=== PATIENT | female | born 1930 | race Caucasian/White ===

== ENCOUNTER → 2016-05-05 | Outpatient (REF) | payer MEDICARE ==
[~2016-05-05] MED LIST: ALEN70TA39 PO; AMLO5TAB2 PO; ASPI81TA21 PO; DRAM25TA3 PO; FLEEENE4 PR; FOSA70TA PO; GLIP5TAB8 PO; GLUC5TAB3 PO; GLUCTAB PO; LISI20TA PO; MELO15TA4 PO; METF1000 PO; METF500T4 PO; NORV5TAB PO; SENO8.6T10 PO; SIMV20TA2 PO; TRAN1.5D2 TOP; TYLE650T30 PO; VITA10006 PO; VITA100066 PO; VITA2000 PO; ZEST1TAB2 PO; ZEST1TAB7 PO
[2016-05-05 12:15] LABS: ALBUMIN 3.4 GM/DL (3.2-5.2); ALBUMIN/GLOBULIN RATIO 1.36 (1.00-1.93); BILIRUBIN,TOTAL 0.3 MG/DL (0.2-1.0); CALCIUM LEVEL 8.9 MG/DL (8.8-10.2); CREATININE FOR GFR 1.1 MG/DL (0.55-1.02); GLOMERULAR FILTRATION RATE 50.1 (>32); POTASSIUM SERUM 4.2 MEQ/L (3.5-5.1); TOTAL PROTEIN 5.9 GM/DL (6.4-8.2)
== END | disposition home or self-care (01) ==
LOC: M SFHCPLAZ 08:54
PROVIDERS: ATTEND Internal Medicine
DX: E11.9 Type 2 diabetes mellitus without complications (principal); I10 Essential (primary) hypertension

== ENCOUNTER 2016-06-20 02:44 | Inpatient (IN) | payer MEDICARE ==
[~2016-06-20] VITALS: Ht 154.9 cm; Wt 73.2 kg
[2016-06-20] VITALS (7 sets, daily range): BP systolic 159–191; BP diastolic 70–91
[2016-06-20] MEDS ORDERED: CEFD1CAP8 PO (03:42)
[2016-06-20] MEDS ORDERED: NS 1,000 ML IV SCH (03:45)
[2016-06-20] MEDS: fentaNYL 100 MCG/2 ML INJECTION (J3010) IV PRN ×2 (03:53→04:25)
[2016-06-20 04:07] LABS: BASO % 0.8 % (0.0-1.0); EOS % 0.9 % (0.0-3.0); LARGE UNSTAINED CELL # 0.1 K/mm3 (0.0-0.4); LARGE UNSTAINED CELL % 1.5 % (0.0-4.0); LYMPH # 1.5 K/mm3 (1.5-4.5); LYMPH % 22.1 % (24.0-44.0); MEAN CORPUSCULAR HEMOGLOBIN 30.6 pg (27.0-33.0); MEAN CORPUSCULAR HGB CONC 31.8 g/dl (32.0-36.5); MONO # 0.4 K/mm3 (0.0-0.8); MONO % 6.7 % (0.0-5.0); NEUTROPHILS # 4.2 K/mm3 (1.8-7.7); NEUTROPHILS % 68.1 % (36.0-66.0); PLATELET COUNT, AUTOMATED 298 k/mm3 (150-450); RED CELL DISTRIBUTION WIDTH 13.5 % (11.5-14.5); WHITE BLOOD COUNT 6.2 K/mm3 (4.0-10.0)
[2016-06-20] MEDS: ONDANSETRON 4MG/2ML VIAL (J2405) IV PRN ×2 (04:30→12:13)
[2016-06-20] MEDS ORDERED: FLUORESCEIN OPHTH 1 MG STRIP OD ONE (04:30)
[2016-06-20 04:31] LABS: ALBUMIN 3.4 GM/DL (3.2-5.2); ALBUMIN/GLOBULIN RATIO 1.03 (1.00-1.93); ALKALINE PHOSPHATASE 92 U/L (45-117); ALT/SGPT 15 U/L (12-78); ANION GAP 8 MEQ/L (8-16); AST/SGOT 11 U/L (15-37); BILIRUBIN,DIRECT < 0.1 MG/DL (0.0-0.2); BILIRUBIN,TOTAL 0.4 MG/DL (0.2-1.0); BLOOD UREA NITROGEN 14 MG/DL (7-18); CALCIUM LEVEL 8.7 MG/DL (8.8-10.2); CARBON DIOXIDE LEVEL 27 MEQ/L (21-32); CHLORIDE LEVEL 107 MEQ/L (98-107); GLOMERULAR FILTRATION RATE 55.8 (>32); GLUCOSE, FASTING 141 MG/DL (83-110); POTASSIUM SERUM 4.1 MEQ/L (3.5-5.1); SODIUM LEVEL 142 MEQ/L (136-145); TOTAL PROTEIN 6.7 GM/DL (6.4-8.2)
[2016-06-20] MEDS: HYDROmorphone HCL 1 MG/ML SYRINGE (J1170) IV PRN ×2 (04:33→07:29)
[2016-06-20] MEDS ORDERED: ONDANSETRON 4MG/2ML VIAL (J2405) As Ordered ONE (04:37)
[2016-06-20] MEDS ORDERED: ACYCLOVIR 500 MG in D5W MINI-BAG PLUS 100 ML IV ONE (05:00)
[2016-06-20] MEDS ORDERED: ISOVUE-370 76% 100ML VIAL (Q9967) As Ordered ONE (05:01)
[2016-06-20 05:04] LABS: ERYTHROCYTE SEDIMENTATION RATE 12 mm/hr (0-42)
[2016-06-20] MEDS: TRIFLURIDINE 1% OPHTH SOLN 7.5 ML OD SCH ×5 (05:46→20:57)
[2016-06-20 06:27] LABS: METHADONE URINE NEGATIVE (NEGATIVE)
[2016-06-20] MEDS ORDERED: DEXTROSE 50% 50 ML SYRINGE IV PRN (06:30)
[2016-06-20] MEDS ORDERED: GLUCAGON FOR INJ 1 MG VIAL (J1610) SC PRN (06:30)
[2016-06-20] MEDS ORDERED: GLUCOSE 4 GM CHEW TABLET PO PRN (06:30)
[2016-06-20] MEDS ORDERED: ERYT5OPO OD (06:46)
--- NOTE | 2016-06-20 07:12 | HPEPDOC ---
Medical History and Physical Date of Admission 06/20/16 History and Physical PRIMARY CARE PROVIDER: ATTENDING: Dr. Chávez. CHIEF COMPLAINT: Eye pain HISTORY OF PRESENT ILLNESS: This 86-year-old female past ocular history of diabetes, hypertension, hyperlipidemia, osteoporosis, BPPV presents complaining of a headedness and right eye pain. Much of the history was provided by the ED physician. Patient appears to likely have baseline dementia, and could not provide most of the history. Apparently the patient had been seen by her trestleman and prescribed Cefdinir for the erythema surrounding her right eye. The patient states that's her eye pain had progressively worsened. EMS had noted that half of her antibiotics had been missing in the patient's initially noted that she had taken half of them over 1 day (5 days of tablets). ED physician and also spoken to poison control who recommended observation of renal function. The patient also had a stained eye exam by the ED physician who did not note any vesicles or foreign body. Dr. Hilliard was contacted by the ED with recommendations for antibiotic viral drops which have been ordered. Patient states her pain is currently well controlled. Denies any blurred vision or vision changes. PAST MEDICAL HISTORY: As per HPI PAST SURGICAL HISTORY: HYST, hand tendon surg, polypectomy, b/l cataracts SOCIAL HISTORY:Denies tobacco, alcohol, illicit drug use. Lives alone. FAMILY HISTORY:Non contrib. ALLERGIES: Please see below. REVIEW OF SYSTEMS: HEENT: Denies sore throat/headache CARDIOVASCULAR: Denies chest pain/palpitations RESPIRATORY: No shortness of breath/cough GASTROINTESTINAL: denies nausea/vomiting GENITOURINARY: Denies dysuria/urinary urgency. MUSCULOSKELETAL: Denies myalgias/arthralgias NEUROLOGICAL: Denies any focal weakness Rest of ROS negative. HOME MEDICATIONS: Please see below. PHYSICAL EXAMINATION: Vitals: (see below) General: No acute distress, laying comfortably in bed. HEENT: Moist mucous membranes. EOMI. Pupils 1-2mm equal and reactive to light. Right eye with injected conjunctiva and swollen. No pain with eye movement. Visual butler intact. Pre-septal cellulitis/erythema. Minimal crustal adjacent to the nasal bridge. Yellow drainage like from the fluorescein eye stain. Neck: No JVD or lymphadenopathy Cardiac: RRR, No murmurs Pulm: Coarse crackles b/l bases. No wheezing, rhonchi Abd: NT/ND + BS Ext: No edema or cyanosis LABORATORY DATA: See below. IMAGING: CT Maxillofacial pending. MICROBIOLOGY: Please see below. ASSESSMENT/PLAN: 1. Herpes zoster with surrounding ophthalmologic involvement - ophthalmology has been contacted by the ED with recommendations for anti-viral drops which have been ordered. CT maxillofacial had been reported to have preseptal cellulitis. Patient was initially prescribed Cefdnir, which the patient taken 5 days worth in 1 day. Poison control had been contacted in the ED with recommendations for monitoring of renal function. In the meantime we'll treat patient with clindamycin for preseptal cellulitis as well as continuing antivirals. 2. Diabetes mellitus- sliding scale insulin 3. Hypertension- continue home meds 4. Osteoporosis 5. Dementia PFS consult has been placed as the patient may need placement given her dementia and her living situation. DVT prophylaxis- OOB Patient be followed by Dr. Chávez starting 06/20/16 at 7 AM. Vital Signs Vital Signs Date Time Temp Pulse Resp B/P Pulse Ox O2 Delivery O2 Flow Rate FiO2 06/20/16 02:51 98.2 72 18 127/80 95 Room Air Laboratory Data Labs 24H Laboratory Tests 2 06/20/16 03:49: Acetaminophen Level < 2.0L, Aspartate Amino Transf (AST/SGOT) 11L, Alanine Aminotransferase (ALT/SGPT) 15, Alkaline Phosphatase 92, Total Bilirubin 0.4, Direct Bilirubin < 0.1, Albumin 3.4, Albumin/Globulin Ratio 1.03, Anion Gap 8, White Blood Count 6.2, Red Blood Count 4.21, Hemoglobin 12.9, Hematocrit 40.4, Mean Corpuscular Volume 96.0, Mean Corpuscular Hemoglobin 30.6, Mean Corpuscular Hemoglobin Concent 31.8L, Red Cell Distribution Width 13.5, Platelet Count 298, Neutrophils (%) (Auto) 68.1H, Lymphocytes (%) (Auto) 22.1L, Monocytes (%) (Auto) 6.7H, Eosinophils (%) (Auto) 0.9, Basophils (%) (Auto) 0.8 , Neutrophils # (Auto) 4.2, Lymphocytes # (Auto) 1.5, Monocytes # (Auto) 0.4, Eosinophils # (Auto) 0.0, Basophils # (Auto) 0.0, C-Reactive Protein, Quantitative < 0.30, Calcium Level 8.7L, Erythrocyte Sedimentation Rate 12, Ethyl Alcohol Level < 0.003, Glomerular Filtration Rate 55.8, Large Unclassified Cells # 0.1, Large Unclassified Cells % 1.5, Salicylates Level < 1.7L, Thyroid Stimulating Hormone (TSH) 1.520, Total Creatine Kinase 74, Total Protein 6.7 06/20/16 05:48: Urine Amphetamines Screen NEGATIVE, Urine Benzodiazepines Screen NEGATIVE, Urine Opiates Screen NEGATIVE, Urine Barbiturates Screen NEGATIVE, Urine Cannabinoids Screen NEGATIVE, Urine Cocaine Metabolite Screen NEGATIVE, Urine Methadone Screen NEGATIVE, Urine Phencyclidine Screen NEGATIVE CBC/BMP Laboratory Tests 06/20/16 03:49 Red Blood Count 4.21, Mean Corpuscular Volume 96.0, Mean Corpuscular Hemoglobin 30.6, Mean Corpuscular Hemoglobin Concent 31.8 L, Red Cell Distribution Width 13.5, Neutrophils (%) (Auto) 68.1 H, Lymphocytes (%) (Auto) 22.1 L, Monocytes (% ) (Auto) 6.7 H, Eosinophils (%) (Auto) 0.9, Basophils (%) (Auto) 0.8, Neutrophils # (Auto) 4.2, Lymphocytes # (Auto) 1.5, Monocytes # (Auto) 0.4, Eosinophils # (Auto) 0.0, Basophils # (Auto) 0.0 Microbiology Microbiology 06/20/16 Blood Culture, Received Pending 06/20/16 Blood Culture, Received Pending Home Medications Scheduled (Lisinopril/Hydrochlorothi 20-12.5 mg) 1 Tab Tab 1 TAB PO DAILY Alendronate Sodium (Fosamax) 70 Mg Tab 70 MG PO 1XWK Amlodipine Besylate (Amlodipine Besylate) 5 Mg Tab 5 MG PO DAILY Ascorbic Acid (Vitamin C) 1,000 Mg Tab 2,000 MG PO DAILY Aspirin (Aspir-Low) 81 Mg Tab 81 MG PO DAILY Cefdinir (Cefdinir) 300 Mg Cap 300 MG PO BID FOR 10 DAYS; 06/18/2016 Cholecalciferol (Vitamin D) 1,000 Unit Tab 1,000 UNIT PO DAILY Erythromycin (Erythromycin) 1 Dose/1 Gm Oint 0 OD TID FOR 5 DAYS; STARTED 06/18/2016 Glipizide (Glipizide) 5 Mg Tab 5 MG PO BID Metformin Hydrochloride (Metformin HCl ER) 500 Mg Tab 500 MG PO DAILY Scopolamine (Transderm-Scop) 1.5 Mg Dis 1.5 MG TOP Q72H Simvastatin (Simvastatin) 20 Mg Tab 20 MG PO QHS Allergies Coded Allergies: Meclizine (Verified Allergy, Unknown, 11/16/14) Morphine (Unverified Allergy, Unknown, SHAKES, 01/02/14) Procaine (Verified Allergy, Unknown, 11/16/14) Azithromycin (Verified Adverse Reaction, Intermediate, PALPITATION,WEAK, SHAKING, 07/04/12) Codeine (Unverified Adverse Reaction, Intermediate, NAUSEA,HALLUCINATIONS , 07/04/12) Penicillins (Verified Adverse Reaction, Mild, NAUSEA,VOMITING, 07/04/12) Penicillins Cross Reactors (Verified Adverse Reaction, Mild, NAUSEA, VOMITING, 07/04/12) JULIETA BETTS MD Jun 20, 2016 07:12 JULIETA BETTS MD Jun 20, 2016 07:12
[2016-06-20] MEDS: HumaLOG INSULIN (NovoLOG) PER UNIT SC SCH ×4 (07:42→20:43)
[2016-06-20] MEDS: CLINDAMYCIN 300 MG in APPROPRIATE DILUENT 1 EA IV SCH ×2 (07:59→17:21)
--- NOTE | 2016-06-20 08:04 | REP ---
Clinical: Drug overdose . Comparison: 02/16/2016 . Findings: The mediastinum and cardiac silhouette are stable and within normal limits for portable technique. The lung butler are clear without acute consolidation, effusion, or pneumothorax. Skeletal structures are intact. Impression: Normal portable chest x-ray Signed by Eliud Blank MD 06/20/2016 07:56 A
[2016-06-20] MEDS ORDERED: LISINOPRIL 20 MG TAB PO SCH (09:00)
[2016-06-20] MEDS ORDERED: hydroCHLOROthiazide 12.5 MG CAPSULE PO SCH (09:00)
[2016-06-20] MEDS ORDERED: amLODIPine 5 MG TAB PO SCH (09:00)
[2016-06-20] MEDS: LACTOBACILLUS ACIDOPHILUS CAP (BACID) PO SCH (09:01)
[2016-06-20] MEDS: ASCORBIC ACID 500 MG TAB PO SCH (09:02)
[2016-06-20] MEDS: ASPIRIN 81 MG ENTERIC TAB PO SCH (09:02)
[2016-06-20] MEDS ORDERED: traMADol 50 MG TAB PO PRN ×2 (11:00→14:00)
[2016-06-20] MEDS: ACETAMINOPHEN TAB 650MG DOSE (2X325MG) PO PRN ×2 (13:29→20:50)
--- NOTE | 2016-06-20 19:46 | ECGEPIP ---
Stationary ECG Study [facility] - ED Test Date: 2016-06-20 Pat Name: AVTAR KIM Department: Room: [place] [address] Gender: F Consultant Teacher: herminio : [id number] Requested By: JONATHAN Allen Order Number: [id number] Reading MD: Peyton Frost Measurements Intervals Rochert Rate: 75 P: -85 CO: 116 QRS: -49 QRSD: 91 T: 4 QT: 384 QTc: 431 Interpretive Statements SINUS RHYTHM WITH OCCASIONAL VENTRICULAR PREMATURE COMPLEXES PATTERN CONSISTENT WITH PULMONARY DISEASE LEFT ANTERIOR FASCICULAR BLOCK SIMILAR 02/16/16 Electronically Signed On 06-20-2016 19:46:47 EDT by Peyton Frost
[2016-06-20] MEDS: SIMVASTATIN 20 MG TAB PO SCH (20:50)
[2016-06-21] MEDS: TRIFLURIDINE 1% OPHTH SOLN 7.5 ML OD SCH ×6 (00:35→20:16)
[2016-06-21] MEDS: CLINDAMYCIN 300 MG in APPROPRIATE DILUENT 1 EA IV SCH ×4 (00:35→23:32)
[2016-06-21 02:00] VITALS: BP 178/80
[2016-06-21 06:00] VITALS: BP 167/72
[2016-06-21] MEDS ORDERED: LISINOPRIL 5 MG TAB PO ONE (06:45)
[2016-06-21] MEDS ORDERED: amLODIPine 10 MG TAB PO ONE (06:45)
[2016-06-21 07:07] LABS: MEAN CORPUSCULAR HEMOGLOBIN 32.5 pg (27.0-33.0); MEAN CORPUSCULAR HGB CONC 34.5 g/dl (32.0-36.5); MEAN CORPUSCULAR VOLUME 94.1 fl (80.0-96.0); RED CELL DISTRIBUTION WIDTH 13.3 % (11.5-14.5); WHITE BLOOD COUNT 4.3 K/mm3 (4.0-10.0)
[2016-06-21] MEDS: ACETAMINOPHEN TAB 650MG DOSE (2X325MG) PO PRN (07:11)
[2016-06-21 07:26] LABS: CALCIUM LEVEL 9.1 MG/DL (8.8-10.2); GLOMERULAR FILTRATION RATE 55.8 (>32); POTASSIUM SERUM 3.7 MEQ/L (3.5-5.1)
[2016-06-21] MEDS: LACTOBACILLUS ACIDOPHILUS CAP (BACID) PO SCH (08:27)
[2016-06-21] MEDS: ASCORBIC ACID 500 MG TAB PO SCH (08:27)
[2016-06-21] MEDS: HumaLOG INSULIN (NovoLOG) PER UNIT SC SCH ×4 (08:27→20:20)
[2016-06-21] MEDS: ASPIRIN 81 MG ENTERIC TAB PO SCH (08:27)
[2016-06-21 10:00] VITALS: BP 130/60
[2016-06-21] MEDS: **hydrALAZINE** 10 MG TAB PO SCH ×3 (12:00→23:28)
--- NOTE | 2016-06-21 13:38 | IPN ---
DATE: 06/21/2016 Patient seen and examined at the bedside. Chart has been reviewed. No visual blurring or worsening of vision of the right eye. She is able to follow [id number] testing and extraocular muscles with no difficulty. Able to read her menu. She describes slight pain when she eats around the orthodox area. Temperature 97.3, pulse 65, respiratory rate 18, blood pressure 167/72, 97% on room air. Generally, the patient has significant erythema along the medial aspect of the right eye. There is some erythema around the upper and lower eyelids, crusting along the nasal bridge with yellow drainage. The patient has slightly injected conjunctivae and swelling. Pupils are 1-2 mm, equally reactive to light bilaterally. Moist mucous membranes. No jugular venous distention (JVD). Lungs are clear to auscultation. No wheezing, rales or rhonchi. Heart: S1, S2. Sinus rhythm. Abdomen is soft, nontender, nondistended. Extremities: No cyanosis, clubbing or pitting edema. Laboratory data, microbiology, imaging studies have been reviewed. ASSESSMENT AND PLAN: This is an 86-year-old female with a history of diabetes, hypertension, hyperlipidemia, osteoporosis, benign paroxysmal positional vertigo (BPPV), complained of lightheadedness and right eye pain, was initially seen by her physician, given cefdinir for erythema around her right eye. Dr. Hilliard recommended antibiotic viral drops with a zoster involving the eye, currently admitted for possible preseptal cellulitis. CURRENT ISSUES: 1. Herpes zoster with surrounding preseptal cellulitis, currently on anti-viral drops, per Dr. Hilliard ophthalmology recommendation. CT maxillofacial showed preseptal cellulitis. She was initially taking cefdinir 5 days worth in 1 day. The patient's creatinine remained stable. She is currently on IV clindamycin and continue with monitoring clinically. 2. Diabetes. Sliding scale, consistent carbohydrate diet. Resume home medications. 3. Hypertension. Uncontrolled. Will add hydralazine. 4. Osteoporosis, chronic. 5. Dementia, chronic. MTDD
[2016-06-21 14:00] VITALS: BP 120/60
[2016-06-21 18:00] VITALS: BP 130/70
[2016-06-21] MEDS: SIMVASTATIN 20 MG TAB PO SCH (20:16)
[2016-06-21 22:00] VITALS: BP 136/64
[2016-06-22] MEDS: TRIFLURIDINE 1% OPHTH SOLN 7.5 ML OD SCH ×6 (01:15→21:21)
[2016-06-22 02:00] VITALS: BP 127/60
[2016-06-22] MEDS: **hydrALAZINE** 10 MG TAB PO SCH ×3 (05:33→18:00)
[2016-06-22 05:45] LABS: MEAN CORPUSCULAR HEMOGLOBIN 31.4 pg (27.0-33.0); MEAN CORPUSCULAR HGB CONC 33.5 g/dl (32.0-36.5); MEAN CORPUSCULAR VOLUME 93.6 fl (80.0-96.0); RED CELL DISTRIBUTION WIDTH 13.3 % (11.5-14.5); WHITE BLOOD COUNT 6.1 K/mm3 (4.0-10.0)
[2016-06-22 05:53] LABS: CALCIUM LEVEL 8.6 MG/DL (8.8-10.2); GLOMERULAR FILTRATION RATE 55.8 (>32); POTASSIUM SERUM 3.5 MEQ/L (3.5-5.1)
[2016-06-22 06:00] VITALS: BP 130/70
[2016-06-22] MEDS: HumaLOG INSULIN (NovoLOG) PER UNIT SC SCH ×4 (08:43→21:00)
[2016-06-22] MEDS: CLINDAMYCIN 300 MG in APPROPRIATE DILUENT 1 EA IV SCH ×2 (08:43→16:46)
[2016-06-22] MEDS: LACTOBACILLUS ACIDOPHILUS CAP (BACID) PO SCH (08:44)
[2016-06-22] MEDS: LISINOPRIL 5 MG TAB PO SCH (08:45)
[2016-06-22] MEDS: ASPIRIN 81 MG ENTERIC TAB PO SCH (08:46)
[2016-06-22] MEDS: ASCORBIC ACID 500 MG TAB PO SCH (08:46)
[2016-06-22] MEDS: amLODIPine 10 MG TAB PO SCH (08:47)
[2016-06-22 10:00] VITALS: BP 145/64
--- NOTE | 2016-06-22 10:59 | IPN ---
DATE: 06/22/2016 Patient seen and examined at the bedside. Chart has been reviewed. This morning patient has no new complaints. She slept well yesterday. Denies any eye pain. Able to move her eyes left to right, up and down, with no difficulty. No discharge of the eye. No visual blurring. No changes in visual acuity. Temperature 98.4, pulse 92, respiratory rate 18, blood pressure 130/70, 99% on room air. Generally, has marked improvement of the erythema along the medial aspect of the right face, eyelid, decrease in swelling. Extraocular muscles were intact. Pupils were equally round and reactive to light. Moist mucous membranes. No jugular venous distention (JVD). Lungs were clear to auscultation. No wheezing, rales or rhonchi. Heart S1 and S2 sinus rhythm. Abdomen was soft, nontender, nondistended. Positive bowel sounds times four quadrants. Extremities no cyanosis, clubbing, or pitting edema. LABORATORY DATA: CBC, metabolic panel, microbiology and imaging studies have been reviewed. ASSESSMENT/PLAN: 86-year-old female with history of diabetes, hypertension, hyperlipidemia, osteoporosis, benign paroxysmal positional vertigo, complaining of lightheadedness and right eye pain, was seen by her physician and given cefdinir for edema around her right eye. Dr. Hilliard recommended antiviral with zoster involving the eye currently admitted for preseptal cellulitis. IMPRESSION: 1. Herpes zoster with surrounding preseptal cellulitis currently on antiviral drops per Dr. Hilliard of ophthalmology recommendation. Maxillofacial CT showed preseptal cellulitis. The patient had taken cefdinir five days worth in one day. Creatinine remains stable. She is currently on IV clindamycin, avoiding nephrotoxins, renally dosing all medications, and monitoring the patient's creatinine. 2. Discharge plans are for Wednesday. 3. Type 2 diabetes on sliding scale and consistent carbohydrate diet. Resumed home medications. 4. Hypertension. Improved with hydralazine, Norvasc and lisinopril. Creatinine is normal. DISPOSITION: Discharge plans in the morning. [facility]
--- NOTE | 2016-06-22 13:03 | REPUSA ---
HISTORY: Right periorbital swelling. COMPARISON: Not provided. TECHNIQUE: Multiple thin section helically-acquired axially-displayed and helically acquired coronall y displayed computed tomographic images of the face are obtained from the mandible through the fronta l sinuses, with images obtained at soft tissue and bone window. 2D reformatted images were performed. FINDINGS: Right preseptal soft tissue edema and subcutaneous fat stranding. Associated abnormal enhancement. Normal bony mineralization. No fractures. Normal orbits. Normal, clear paranasal sinuses. Normal oral and nasal cavities. Normal infratemporal fossa and deep parapharyngeal spaces with normal muscles of mastication. Normal parotid and submandibular glands. IMPRESSION: Right preseptal cellulitis. No post septal extension of the inflammatory changes. No drainable fluid collection. Thank you for your kind referral of this patient
[2016-06-22 14:00] VITALS: BP 146/70
[2016-06-22 18:00] VITALS: BP 126/77
[2016-06-22] MEDS: SIMVASTATIN 20 MG TAB PO SCH (21:21)
[2016-06-22 22:00] VITALS: BP 149/73
[2016-06-23] MEDS: **hydrALAZINE** 10 MG TAB PO SCH ×4 (00:30→17:48)
[2016-06-23] MEDS: CLINDAMYCIN 300 MG in APPROPRIATE DILUENT 1 EA IV SCH ×2 (00:41→08:16)
[2016-06-23] MEDS: TRIFLURIDINE 1% OPHTH SOLN 7.5 ML OD SCH ×6 (00:42→21:43)
[2016-06-23] MEDS: HumaLOG INSULIN (NovoLOG) PER UNIT SC SCH ×4 (08:16→21:45)
[2016-06-23] MEDS: ASCORBIC ACID 500 MG TAB PO SCH (08:16)
[2016-06-23] MEDS: ASPIRIN 81 MG ENTERIC TAB PO SCH (08:17)
[2016-06-23] MEDS: LISINOPRIL 5 MG TAB PO SCH (08:17)
[2016-06-23] MEDS: LACTOBACILLUS ACIDOPHILUS CAP (BACID) PO SCH (08:17)
[2016-06-23] MEDS: amLODIPine 10 MG TAB PO SCH (08:17)
[2016-06-23] MEDS: HEPARIN SOD (PORCINE) 5000 UNITS/ML VIAL SQ SCH ×2 (08:18→21:42)
[2016-06-23 10:00] VITALS: BP 143/69
[2016-06-23 10:14] LABS: MEAN CORPUSCULAR HEMOGLOBIN 32.6 pg (27.0-33.0); MEAN CORPUSCULAR HGB CONC 35.3 g/dl (32.0-36.5); MEAN CORPUSCULAR VOLUME 92.3 fl (80.0-96.0); RED CELL DISTRIBUTION WIDTH 13.3 % (11.5-14.5); WHITE BLOOD COUNT 5.7 K/mm3 (4.0-10.0)
[2016-06-23] MEDS: ACETAMINOPHEN TAB 650MG DOSE (2X325MG) PO PRN (10:14)
[2016-06-23 10:25] LABS: CREATININE FOR GFR 1.05 MG/DL (0.55-1.02); GLOMERULAR FILTRATION RATE 52.8 (>32); MAGNESIUM LEVEL 1.8 MG/DL (1.8-2.4); POTASSIUM SERUM 3.7 MEQ/L (3.5-5.1)
[2016-06-23 14:00] VITALS: BP 151/74
[2016-06-23] MEDS: CLINDAMYCIN 150 MG CAP PO SCH ×2 (14:25→21:44)
--- NOTE | 2016-06-23 17:19 | IPN ---
DATE: 06/23/2016 Patient very poor historian. No acute events. Sleeping well. Denies any chest pain, pressure or discomfort. No significant visual change. VITAL SIGNS: Temperature 98, pulse 89, respiration 19, blood pressure 151/74, pulse ox 94% on room air. LABORATORY DATA: WBC 5.7, H H 12.3/34.9, platelets 266. Chemistry: Sodium 141, potassium 3.7, chloride 105, bicarbonate 28, BUN 9, creatinine 1.5. PHYSICAL EXAMINATION: GENERAL: No acute distress, comfortable/. HEENT: Right facial erythema, mildly swollen. Minimal tenderness to palpation. Extraocular muscles are intact. Pupils are bilaterally equal and reactive to light. Moist mucous membranes. NECK: Supple. No jugular venous distention. Mid forehead dark lesion, as per family has been a week old, possibly secondary to fall. PULMONARY: Bilaterally clear to auscultation. No wheezing, rales or rhonchi. CARDIOVASCULAR: Regular rate and rhythm. Normal S1, S2. ABDOMEN: Soft, non-tender, non-distended. Positive bowel sounds. EXTREMITIES: No edema bilateral lower extremities. ASSESSMENT AND PLAN: This is an 86-year-old female with underlying medical history of type 2 diabetes, hypertension, dyslipidemia, osteoporosis, benign paroxysmally positional vertigo complaining of lightheadedness and right eye pain was seen by her physician and given cefdinir for edema of the right eye. Dr. Ga Monreal recommends antiviral for Herpes Zoster, shingles involving the eye and also admitted for preseptal cellulitis. PROBLEMS: 1. Herpes zoster Shingles with surrounding preseptal cellulitis. Currently on antiviral drops per Dr. Ga Monreal of ophthalmology. Maxillofacial CT shows preseptal cellulitis. The patient currently on clindamicin. Follow up C-reactive protein. Renally dose medication. Follow up creatinine. 2. Type 2 diabetes. Consistent carbohydrate diet. Insulin as per scale. Resume home medication once ready for discharge. 3. Hypertension. Continue lisinopril, Norvasc, hydralazine. Follow up creatinine. Adjust medications as needed. 4. Dyslipidemia. Continue statin. 5. Benign paroxysmal positional vertigo. Physical therapy. 6. Deep vein thrombosis prophylaxis. Heparin subcutaneously. DISPOSITION: Pending physical therapy. Possible placement. Clinical improvement. Follow up C-reactive protein.
[2016-06-23 18:00] VITALS: BP 142/76
[2016-06-23] MEDS: SIMVASTATIN 20 MG TAB PO SCH (21:44)
[2016-06-23 22:00] VITALS: BP 157/81
[2016-06-24] VITALS (8 sets, daily range): BP systolic 125–172; BP diastolic 60–86
[2016-06-24] MEDS: **hydrALAZINE** 10 MG TAB PO SCH ×5 (00:33→23:10)
[2016-06-24] MEDS: TRIFLURIDINE 1% OPHTH SOLN 7.5 ML OD SCH ×6 (01:15→21:07)
[2016-06-24] MEDS: CLINDAMYCIN 150 MG CAP PO SCH ×3 (05:32→21:06)
[2016-06-24 07:04] LABS: MEAN CORPUSCULAR HEMOGLOBIN 32.4 pg (27.0-33.0); MEAN CORPUSCULAR HGB CONC 34.6 g/dl (32.0-36.5); MEAN CORPUSCULAR VOLUME 93.5 fl (80.0-96.0); RED CELL DISTRIBUTION WIDTH 13.5 % (11.5-14.5); WHITE BLOOD COUNT 5.2 K/mm3 (4.0-10.0)
[2016-06-24 07:10] LABS: ANION GAP 6 MEQ/L (8-16); BLOOD UREA NITROGEN 9 MG/DL (7-18); CARBON DIOXIDE LEVEL 29 MEQ/L (21-32); CHLORIDE LEVEL 106 MEQ/L (98-107); CREATININE FOR GFR 0.98 MG/DL (0.55-1.02); GLOMERULAR FILTRATION RATE 57.2 (>32); GLUCOSE, FASTING 126 MG/DL (83-110); MAGNESIUM LEVEL 1.9 MG/DL (1.8-2.4); POTASSIUM SERUM 3.6 MEQ/L (3.5-5.1); SODIUM LEVEL 141 MEQ/L (136-145)
[2016-06-24] MEDS: HumaLOG INSULIN (NovoLOG) PER UNIT SC SCH ×4 (07:30→20:48)
[2016-06-24] MEDS: ASCORBIC ACID 500 MG TAB PO SCH (09:56)
[2016-06-24] MEDS: LACTOBACILLUS ACIDOPHILUS CAP (BACID) PO SCH (09:56)
[2016-06-24] MEDS: ASPIRIN 81 MG ENTERIC TAB PO SCH (09:57)
[2016-06-24] MEDS: LISINOPRIL 5 MG TAB PO SCH (09:57)
[2016-06-24] MEDS: HEPARIN SOD (PORCINE) 5000 UNITS/ML VIAL SQ SCH ×2 (09:57→21:07)
[2016-06-24] MEDS: amLODIPine 10 MG TAB PO SCH (09:57)
--- NOTE | 2016-06-24 14:59 | IPN ---
DATE: 06/24/2016 Patient seen and examined. No acute events overnight. Patient is a very poor historian. Sleeping well. Denies any chest pain, pressure or discomfort. No visual changes. VITAL SIGNS: Temperature 97.9, pulse 63, respirations 16, blood pressure 153/62, pulse oximetry 98% on room air. LABORATORY DATA: WBC 5.2, hemoglobin and hematocrit 11.9/34.2, platelets 245. Chemistry: Sodium 141, potassium 3.6, chloride 106, bicarbonate 29, BUN 9, creatinine 0.98. C-reactive protein negative. PHYSICAL EXAMINATION: GENERAL: Patient in no acute distress, comfortable. HEENT: Right facial erythema, mildly swollen. Minimal tenderness to palpation. Extraocular muscles are intact. Pupils are bilaterally equal and reactive to light. Moist mucous membranes. NECK: Supple. No jugular venous distention. Mild dark lesion mid forehead. As per family it was a week old, likely secondary to fall. PULMONARY: Bilaterally clear to auscultation. No wheezing, rales or rhonchi. CARDIAC: Regular rate and rhythm. Normal S1 and S2. ABDOMEN: Soft, non-tender, non-distended. Positive bowel sounds. EXTREMITIES: No edema bilateral lower extremities. ASSESSMENT AND PLAN: This is an 86-year-old female patient with underlying medical history of type 2 diabetes, hypertension, dyslipidemia, osteoporosis, benign paroxysmal positional vertigo reported lightheadedness and right eye pain was seen by her primary care physician and given cefdinir for edema of the right eye. Dr. Hilliard recommended antiviral eye drops for herpes zoster of the eyes and also admitted for preseptal cellulitis. PROBLEMS: 1. Herpes zoster shingles with surrounding preseptal cellulitis. Currently on antiviral drops per Dr. Hilliard of ophthalmology. Maxillofacial CT shows preseptal cellulitis. Patient currently on clindamycin. C-reactive protein back to baseline. Renally dose medications. Followup creatinine. 2. Type 2 diabetes. Consistent carbohydrate diet. Insulin as per scale. Resume home medication once discharged. 3. Hypertension. Continue lisinopril, Norvasc, hydralazine. Followup creatinine. Adjust medications as needed. 4. Dyslipidemia. Continue statin. 5. Benign paroxysmal positional vertigo. Physical therapy. Outpatient followup. 6. Deep vein thrombosis prophylaxis. Heparin subcutaneously. DISPOSITION: Physical therapy. Possible placement versus home with services.
[2016-06-24] MEDS: ACETAMINOPHEN TAB 650MG DOSE (2X325MG) PO PRN (21:06)
[2016-06-24] MEDS: SIMVASTATIN 20 MG TAB PO SCH (21:06)
[2016-06-25] MEDS: TRIFLURIDINE 1% OPHTH SOLN 7.5 ML OD SCH ×6 (01:30→20:44)
[2016-06-25 02:00] VITALS: BP 141/87
[2016-06-25] MEDS: **hydrALAZINE** 10 MG TAB PO SCH ×3 (05:26→18:00)
[2016-06-25] MEDS: CLINDAMYCIN 150 MG CAP PO SCH ×3 (05:32→20:43)
[2016-06-25 06:00] VITALS: BP 140/60
[2016-06-25 08:10] LABS: CALCIUM LEVEL 8.8 MG/DL (8.8-10.2); CREATININE FOR GFR 0.97 MG/DL (0.55-1.02); GLOMERULAR FILTRATION RATE 57.8 (>32); POTASSIUM SERUM 3.6 MEQ/L (3.5-5.1)
[2016-06-25 08:25] LABS: MEAN CORPUSCULAR HEMOGLOBIN 31.9 pg (27.0-33.0); MEAN CORPUSCULAR HGB CONC 34.2 g/dl (32.0-36.5); MEAN CORPUSCULAR VOLUME 93.2 fl (80.0-96.0); RED CELL DISTRIBUTION WIDTH 13.2 % (11.5-14.5); WHITE BLOOD COUNT 4.6 K/mm3 (4.0-10.0)
[2016-06-25] MEDS ORDERED: POTASSIUM CHLORIDE 10 MEQ SR TABLET PO ONE (08:30)
[2016-06-25] MEDS: HEPARIN SOD (PORCINE) 5000 UNITS/ML VIAL SQ SCH ×2 (08:49→20:44)
[2016-06-25] MEDS: LISINOPRIL 5 MG TAB PO SCH (08:49)
[2016-06-25] MEDS: ASCORBIC ACID 500 MG TAB PO SCH (08:50)
[2016-06-25] MEDS: ASPIRIN 81 MG ENTERIC TAB PO SCH (08:50)
[2016-06-25] MEDS: LACTOBACILLUS ACIDOPHILUS CAP (BACID) PO SCH (08:50)
[2016-06-25] MEDS: amLODIPine 10 MG TAB PO SCH (08:50)
[2016-06-25] MEDS: HumaLOG INSULIN (NovoLOG) PER UNIT SC SCH ×4 (08:51→20:37)
[2016-06-25 10:00] VITALS: BP 170/64
[2016-06-25] MEDS: MIRALAX *UNIT DOSE* 17GM PACKET PO SCH (12:11)
[2016-06-25] MEDS: SENOKOT S TAB PO SCH ×2 (12:11→20:43)
[2016-06-25 14:00] VITALS: BP 162/70
--- NOTE | 2016-06-25 15:07 | IPN ---
DATE: 06/25/2016 The patient was seen and examined. No acute events overnight. Denies any chest pain, pressure or discomfort, fevers or chills. Denies any abdominal pain. Tolerating oral. VITAL SIGNS: Temperature 98.3, pulse 72, respirations 18, blood pressure 120/68, pulse oximetry 95% on room air. LABORATORY DATA: WBC 4.6, hemoglobin and hematocrit 12.7/27.1, platelets 270. Chemistry: Sodium 139, potassium 3.6, chloride 106, bicarbonate 28, BUN 8, creatinine 0.97. PHYSICAL EXAMINATION: The patient is alert, comfortable, in no acute distress. HEENT: Right facial erythema resolving. Swelling is resolved. Mild tenderness to palpation. There is one hyperpigmented hard scab at the mid forehead. Moist mucous membranes. NECK: Supple. No jugular venous distention (JVD). PULMONARY: Bilaterally clear to auscultation. No wheezes, rales or rhonchi. CARDIAC: Regular rate and rhythm. Normal S1, S2. ABDOMEN: Soft, nontender, nondistended. Positive bowel sounds. EXTREMITIES: No edema in bilateral lower extremities. ASSESSMENT AND PLAN: This is an 86-year-old female patient with underlying medical history of type 2 diabetes, hypertension, dyslipidemia, osteoporosis, benign paroxysmal positional vertigo, reported lightheadedness and right eye pain, who was seen by primary care provider and was given Cefdinir for edema of the right eye. Dr. Hilliard recommended antiviral treatment for herpes zoster of the eye and was admitted for preseptal cellulitis. 1. Herpes zoster/shingles of the eye and with surrounding preseptal cellulitis. Currently on antiviral eye drops recommended by Dr. Hilliard with resolution. Cultures appreciated. CT of the maxillofacial shows preseptal cellulitis. The patient will complete a course of clindamycin. Renally dose medications. Follow creatinine. C-reactive protein back to baseline. 2. Type 2 diabetes. Consistent carbohydrate diet. Insulin as per sliding scale. Resume home medications once discharged. 3. Hypertension. Continue Lisinopril, Norvasc and hydralazine. Followup creatinine. Followup blood pressure. Adjust medications as needed. 4. Dyslipidemia. Continue statin. 5. Benign paroxysmal positional vertigo. Physical therapy (PT), outpatient followup. 6. Deep vein thrombosis (DVT) prophylaxis. Heparin subcutaneous. DISPOSITION: Physical therapy (PT), possible placement versus home with services.
[2016-06-25] MEDS: SIMVASTATIN 20 MG TAB PO SCH (20:44)
[2016-06-25 22:00] VITALS: BP 138/70
[2016-06-26] MEDS: TRIFLURIDINE 1% OPHTH SOLN 7.5 ML OD SCH ×6 (00:19→20:50)
[2016-06-26] MEDS: **hydrALAZINE** 10 MG TAB PO SCH ×4 (00:23→17:28)
[2016-06-26 02:00] VITALS: BP 124/68
[2016-06-26] MEDS: CLINDAMYCIN 150 MG CAP PO SCH ×3 (05:20→20:50)
[2016-06-26 06:00] VITALS: BP 140/78
[2016-06-26 07:36] LABS: MEAN CORPUSCULAR HEMOGLOBIN 32.5 pg (27.0-33.0); MEAN CORPUSCULAR HGB CONC 34.8 g/dl (32.0-36.5); MEAN CORPUSCULAR VOLUME 93.6 fl (80.0-96.0); RED CELL DISTRIBUTION WIDTH 13.7 % (11.5-14.5); WHITE BLOOD COUNT 6.1 K/mm3 (4.0-10.0)
[2016-06-26 08:08] LABS: CALCIUM LEVEL 8.6 MG/DL (8.8-10.2); CREATININE FOR GFR 0.99 MG/DL (0.55-1.02); GLOMERULAR FILTRATION RATE 56.5 (>32); MAGNESIUM LEVEL 2.1 MG/DL (1.8-2.4)
[2016-06-26] MEDS: ASCORBIC ACID 500 MG TAB PO SCH (08:48)
[2016-06-26] MEDS: LACTOBACILLUS ACIDOPHILUS CAP (BACID) PO SCH (08:48)
[2016-06-26] MEDS: SENOKOT S TAB PO SCH ×2 (08:48→20:50)
[2016-06-26] MEDS: ACETAMINOPHEN TAB 650MG DOSE (2X325MG) PO PRN (08:48)
[2016-06-26] MEDS: HEPARIN SOD (PORCINE) 5000 UNITS/ML VIAL SQ SCH ×2 (08:49→20:50)
[2016-06-26] MEDS: amLODIPine 10 MG TAB PO SCH (08:49)
[2016-06-26] MEDS: MIRALAX *UNIT DOSE* 17GM PACKET PO SCH (08:49)
[2016-06-26] MEDS: LISINOPRIL 5 MG TAB PO SCH (08:49)
[2016-06-26] MEDS: ASPIRIN 81 MG ENTERIC TAB PO SCH (08:49)
[2016-06-26] MEDS: HumaLOG INSULIN (NovoLOG) PER UNIT SC SCH ×4 (08:50→20:36)
--- NOTE | 2016-06-26 15:34 | CR ---
DATE OF CONSULTATION: I was asked to see Mrs. Avalos in consultation for a lesion on her forehead. According to the patient's son, he first noted the lesion on her forehead approximately two weeks ago and was told initially that she fell and injured it. She was hospitalized on 06/20/2016 for presumed preseptal cellulitis and possible herpes zoster ophthalmicus. Since that time, the area on her forehead and surrounding her eye has improved greatly in its appearance. Dr. Stoner was concerned that she might have an underlying malignancy and asked me to see her in consultation. Mrs. Avalos's past medical history significant for dementia. CURRENT MEDICATIONS: Include: - clindamycin - amlodipine - lisinopril - hydralazine - insulin - Zocor - tramadol - aspirin - Zofran On physical examination, I noted an afebrile female sitting upright, next to the bed, in no apparent distress. She has an 8 x 4 mm, thick eschar located on her right medial brow, surrounded by some hemorrhagic crust. She has no other vesicular hemorrhagic or crusted lesions of note on her face. She does have some purulent discharge from her right eye. Her labs are remarkable in that she has a normal complete blood count (CBC), no elevation in her erythrocyte sedimentation rate (ESR) or C-reactive protein. IMPRESSION/RECOMMENDATION: I think the eschar on Mrs. Avalos's head is the result of some type of trauma or resolving herpetic infection; however, I favor the first diagnosis. At this point, my only recommendation would be to compress the area twice daily for 10 minutes with lukewarm water and apply a thick dollop of Aquaphor or Vaseline. The eschar should come off in a few days. You can continue to use the Aquaphor for as an emollient and discontinue the compresses. Should she have any further problem with this site, please feel free to contact me for a re-evaluation. Thank you for this consultation. Manisha Torres MD [facility] CENTERAlejandro
--- NOTE | 2016-06-26 15:41 | IPN ---
DATE: 06/26/2016 SUBJECTIVE: Patient seen and examined. No acute events overnight. Denies any fever, chills, chest pain, pressure or discomfort. The patient is a very poor historian. Reported facial pain to be improved. VITAL SIGNS: Temperature 98.4, pulse 84, respirations 16, blood pressure 166/76, pulse oximetry 97% on room air. LABORATORY DATA: WBC 6.1, hemoglobin and hematocrit 12.8 over 36.9, platelets 271. Chemistry: Sodium 140, potassium 4, chloride 105, bicarbonate 28, BUN 8, creatinine 0.99. PHYSICAL EXAMINATION: GENERAL: The patient comfortable, alert, in no acute distress. HEENT: Normocephalic. Left facial erythema resolving. Swelling resolved. Mild tenderness to palpation. Moist mucous membranes. Crusting of right nasolabial fold, and there is eschar-like lesion above her right eyebrow. NECK: Supple. No jugular venous distention (JVD). PULMONARY: Bilaterally clear to auscultation. No wheezes, rales, or rhonchi. CARDIAC: Regular rate and rhythm. Normal S1, S2. ABDOMEN: Soft, nontender, nondistended. Positive bowel sounds. EXTREMITIES: No edema bilateral lower extremities. ASSESSMENT AND PLAN: This is an 86-year-old female patient with underlying medical history of type 2 diabetes, hypertension, dyslipidemia, osteoporosis, benign paroxysmal positional vertigo, reported lightheadedness and right eye pain. Was seen by primary care provider and was given cefdinir for erythema of her right eye, and Dr. Hilliard recommended antiviral eye drops for treatment of herpes zoster of the eye, and was admitted and also treated for preseptal cellulitis. 1. Herpes zoster/shingles of the right eye with surrounding preseptal cellulitis, currently on antiviral eye drops and recommended by Dr. Hilliard, with resolution. Cultures appreciated. CT scan of maxillofacial shows preseptal cellulitis. Patient is completing course of clindamycin with improvement. C-reactive protein trended to negative. 2. Type 2 diabetes. Consistent carbohydrate diet. Insulin as per protocol. Resume home medications upon discharge. 3. Hypertension. Continue lisinopril, Norvasc, hydralazine. Followup creatinine. Followup blood pressure. Adjust medication as needed. 4. Dyslipidemia. Continue statin. 5. Benign paroxysmal positional vertigo. Physical therapy (PT) and outpatient followup. 6. Facial cellulitis treated with antibiotics. Dr. Manisha Torres consulted for dermatology to make sure there is no alternative explanation for the lesion, given C-reactive protein has been resolved even though the lesion has persisted. 7. Deep venous thrombosis (DVT) prophylaxis. Heparin subcutaneous. DISPOSITION: Physical therapy (PT). Possible placement versus home with services. Patient is made alternate level of care.
[2016-06-26] MEDS: SIMVASTATIN 20 MG TAB PO SCH (20:49)
[2016-06-26 22:00] VITALS: BP 141/73
[2016-06-27] MEDS: **hydrALAZINE** 10 MG TAB PO SCH ×4 (00:58→17:01)
[2016-06-27] MEDS: TRIFLURIDINE 1% OPHTH SOLN 7.5 ML OD SCH ×7 (01:01→20:33)
[2016-06-27] MEDS: ACETAMINOPHEN TAB 650MG DOSE (2X325MG) PO PRN ×3 (01:46→20:35)
[2016-06-27 02:00] VITALS: BP 126/60
[2016-06-27] MEDS: CLINDAMYCIN 150 MG CAP PO SCH ×3 (05:34→21:25)
[2016-06-27 06:00] VITALS: BP 130/65
[2016-06-27 06:38] LABS: MEAN CORPUSCULAR HEMOGLOBIN 32.2 pg (27.0-33.0); RED CELL DISTRIBUTION WIDTH 13.4 % (11.5-14.5); WHITE BLOOD COUNT 6.3 K/mm3 (4.0-10.0)
[2016-06-27 06:42] LABS: CALCIUM LEVEL 8.8 MG/DL (8.8-10.2); CREATININE FOR GFR 1.02 MG/DL (0.55-1.02); GLOMERULAR FILTRATION RATE 54.6 (>32); MAGNESIUM LEVEL 2.1 MG/DL (1.8-2.4); POTASSIUM SERUM 3.7 MEQ/L (3.5-5.1)
[2016-06-27] MEDS: HumaLOG INSULIN (NovoLOG) PER UNIT SC SCH ×4 (08:00→21:00)
[2016-06-27] MEDS: LACTOBACILLUS ACIDOPHILUS CAP (BACID) PO SCH (08:01)
[2016-06-27] MEDS: HEPARIN SOD (PORCINE) 5000 UNITS/ML VIAL SQ SCH ×2 (08:01→20:34)
[2016-06-27] MEDS: amLODIPine 10 MG TAB PO SCH (08:04)
[2016-06-27] MEDS: ASCORBIC ACID 500 MG TAB PO SCH (08:04)
[2016-06-27] MEDS: LISINOPRIL 5 MG TAB PO SCH (08:04)
[2016-06-27] MEDS: MIRALAX *UNIT DOSE* 17GM PACKET PO SCH (08:05)
[2016-06-27] MEDS: SENOKOT S TAB PO SCH ×2 (08:05→20:35)
[2016-06-27] MEDS: ASPIRIN 81 MG ENTERIC TAB PO SCH (08:05)
[2016-06-27 10:00] VITALS: BP 128/69
[2016-06-27 14:00] VITALS: BP 143/67
[2016-06-27] MEDS: SIMVASTATIN 20 MG TAB PO SCH (20:35)
[2016-06-28] MEDS: TRIFLURIDINE 1% OPHTH SOLN 7.5 ML OD SCH ×6 (01:15→20:44)
[2016-06-28] MEDS: **hydrALAZINE** 10 MG TAB PO SCH ×4 (05:45→17:37)
[2016-06-28 05:56] LABS: MEAN CORPUSCULAR HEMOGLOBIN 31.7 pg (27.0-33.0); MEAN CORPUSCULAR HGB CONC 33.4 g/dl (32.0-36.5); MEAN CORPUSCULAR VOLUME 95.1 fl (80.0-96.0); RED CELL DISTRIBUTION WIDTH 13.7 % (11.5-14.5); WHITE BLOOD COUNT 5.2 K/mm3 (4.0-10.0)
[2016-06-28 06:00] VITALS: BP 147/73
[2016-06-28 06:06] LABS: CALCIUM LEVEL 8.8 MG/DL (8.8-10.2); CREATININE FOR GFR 1.01 MG/DL (0.55-1.02); GLOMERULAR FILTRATION RATE 55.2 (>32); MAGNESIUM LEVEL 2.1 MG/DL (1.8-2.4); POTASSIUM SERUM 3.7 MEQ/L (3.5-5.1)
[2016-06-28] MEDS: CLINDAMYCIN 150 MG CAP PO SCH ×3 (06:13→20:44)
[2016-06-28] MEDS: HumaLOG INSULIN (NovoLOG) PER UNIT SC SCH ×4 (07:30→20:35)
[2016-06-28] MEDS: MIRALAX *UNIT DOSE* 17GM PACKET PO SCH (09:00)
[2016-06-28] MEDS: SENOKOT S TAB PO SCH ×2 (09:04→20:44)
[2016-06-28] MEDS: ASCORBIC ACID 500 MG TAB PO SCH (09:04)
[2016-06-28] MEDS: LACTOBACILLUS ACIDOPHILUS CAP (BACID) PO SCH (09:04)
[2016-06-28] MEDS: ASPIRIN 81 MG ENTERIC TAB PO SCH (09:04)
[2016-06-28] MEDS: LISINOPRIL 5 MG TAB PO SCH (09:05)
[2016-06-28] MEDS: amLODIPine 10 MG TAB PO SCH (09:05)
[2016-06-28] MEDS: HEPARIN SOD (PORCINE) 5000 UNITS/ML VIAL SQ SCH ×2 (09:06→20:44)
[2016-06-28] MEDS: SIMVASTATIN 20 MG TAB PO SCH (20:44)
[2016-06-29] MEDS: **hydrALAZINE** 10 MG TAB PO SCH ×4 (00:18→17:23)
[2016-06-29] MEDS: TRIFLURIDINE 1% OPHTH SOLN 7.5 ML OD SCH ×6 (01:15→21:30)
[2016-06-29] MEDS: CLINDAMYCIN 150 MG CAP PO SCH ×3 (05:25→20:30)
[2016-06-29 06:00] VITALS: BP 145/72
[2016-06-29] MEDS: HumaLOG INSULIN (NovoLOG) PER UNIT SC SCH ×4 (08:28→20:32)
[2016-06-29] MEDS: MIRALAX *UNIT DOSE* 17GM PACKET PO SCH (08:28)
[2016-06-29] MEDS: LACTOBACILLUS ACIDOPHILUS CAP (BACID) PO SCH (08:28)
[2016-06-29] MEDS: LISINOPRIL 5 MG TAB PO SCH (08:31)
[2016-06-29] MEDS: ASCORBIC ACID 500 MG TAB PO SCH (08:32)
[2016-06-29] MEDS: amLODIPine 10 MG TAB PO SCH (08:32)
[2016-06-29] MEDS: ASPIRIN 81 MG ENTERIC TAB PO SCH (08:32)
[2016-06-29] MEDS: SENOKOT S TAB PO SCH ×2 (08:32→20:30)
[2016-06-29] MEDS: HEPARIN SOD (PORCINE) 5000 UNITS/ML VIAL SQ SCH ×2 (08:33→20:32)
[2016-06-29] MEDS: SIMVASTATIN 20 MG TAB PO SCH (20:30)
[2016-06-30] MEDS: TRIFLURIDINE 1% OPHTH SOLN 7.5 ML OD SCH ×6 (01:15→21:21)
[2016-06-30] MEDS: **hydrALAZINE** 10 MG TAB PO SCH ×4 (05:21→17:53)
[2016-06-30] MEDS: CLINDAMYCIN 150 MG CAP PO SCH ×3 (05:24→21:21)
[2016-06-30 06:00] VITALS: BP 120/58
[2016-06-30 07:03] LABS: MEAN CORPUSCULAR HGB CONC 33.7 g/dl (32.0-36.5); MEAN CORPUSCULAR VOLUME 94.9 fl (80.0-96.0); RED CELL DISTRIBUTION WIDTH 13.8 % (11.5-14.5); WHITE BLOOD COUNT 5.1 K/mm3 (4.0-10.0)
[2016-06-30 07:23] LABS: ANION GAP 5 MEQ/L (8-16); BLOOD UREA NITROGEN 9 MG/DL (7-18); CARBON DIOXIDE LEVEL 23 MEQ/L (21-32); CHLORIDE LEVEL 110 MEQ/L (98-107); CREATININE FOR GFR 0.89 MG/DL (0.55-1.02); GLOMERULAR FILTRATION RATE > 60.0 (>32); GLUCOSE, FASTING 123 MG/DL (83-110); MAGNESIUM LEVEL 2.1 MG/DL (1.8-2.4); POTASSIUM SERUM 4.4 MEQ/L (3.5-5.1); SODIUM LEVEL 138 MEQ/L (136-145)
[2016-06-30] MEDS: MIRALAX *UNIT DOSE* 17GM PACKET PO SCH (09:11)
[2016-06-30] MEDS: SENOKOT S TAB PO SCH ×2 (09:12→21:20)
[2016-06-30] MEDS: HumaLOG INSULIN (NovoLOG) PER UNIT SC SCH ×4 (09:12→21:00)
[2016-06-30] MEDS: HEPARIN SOD (PORCINE) 5000 UNITS/ML VIAL SQ SCH ×2 (09:12→21:20)
[2016-06-30] MEDS: ASPIRIN 81 MG ENTERIC TAB PO SCH (09:12)
[2016-06-30] MEDS: LACTOBACILLUS ACIDOPHILUS CAP (BACID) PO SCH (09:12)
[2016-06-30] MEDS: amLODIPine 10 MG TAB PO SCH (09:12)
[2016-06-30] MEDS: ASCORBIC ACID 500 MG TAB PO SCH (09:12)
[2016-06-30] MEDS: LISINOPRIL 5 MG TAB PO SCH (09:13)
[2016-06-30] MEDS: SIMVASTATIN 20 MG TAB PO SCH (21:20)
[2016-07-01] MEDS: TRIFLURIDINE 1% OPHTH SOLN 7.5 ML OD SCH ×3 (01:30→09:27)
[2016-07-01 06:00] VITALS: BP 135/62
[2016-07-01] MEDS: **hydrALAZINE** 10 MG TAB PO SCH ×2 (06:17)
[2016-07-01] MEDS: CLINDAMYCIN 150 MG CAP PO SCH (06:21)
[2016-07-01] MEDS ORDERED: [UNRECOGNIZED DRUG - CODE] OD (07:54)
[2016-07-01] MEDS ORDERED: LISI-542 PO (07:58)
[2016-07-01] MEDS ORDERED: AMLO10TA2 PO (07:58)
[2016-07-01] MEDS: MIRALAX *UNIT DOSE* 17GM PACKET PO SCH (09:00)
[2016-07-01] MEDS: LACTOBACILLUS ACIDOPHILUS CAP (BACID) PO SCH (09:28)
[2016-07-01] MEDS: ASCORBIC ACID 500 MG TAB PO SCH (09:28)
[2016-07-01 09:30] VITALS: BP 142/64
[2016-07-01] MEDS: LISINOPRIL 5 MG TAB PO SCH (09:30)
[2016-07-01] MEDS: amLODIPine 10 MG TAB PO SCH (09:30)
[2016-07-01] MEDS: SENOKOT S TAB PO SCH (09:30)
[2016-07-01] MEDS: HEPARIN SOD (PORCINE) 5000 UNITS/ML VIAL SQ SCH (09:31)
[2016-07-01] MEDS: ASPIRIN 81 MG ENTERIC TAB PO SCH (09:31)
[2016-07-01] MEDS: HumaLOG INSULIN (NovoLOG) PER UNIT SC SCH (09:31)
--- NOTE | 2016-07-01 12:10 | DS.PDOC ---
Discharge Summary General Date of Admission Jun 20, 2016 at 06:18 Date of Discharge Jul 01, 2016 Discharge Summary PRIMARY CARE PHYSICIAN: Dr. Froilan Walker ATTENDING AT TIME OF DISCHARGE: Dr. Guerra DISCHARGE DIAGNOS(E)S: 1. Herpes zoster/shingles of the right eye and nose 2. Preseptal and facial cellulitis of/near right eye 3. Type 2 diabetes 4. Hypertension 5. Dyslipidemia 6. Benign paroxysmal positional vertigo 7. Black lesion/eschar of the face 8. Dementia HPI & HOSPITAL COURSE: The patient presented to the hospital on 06/20/2016 for eye pain, blurry vision , and worsening facial pain, as well as preseptal facial cellulitis. Apparently she had seen her animal shelter worker prior to admission who had prescribed her Ceftin ear, and she had inappropriately taken 5 days worth of antibiotic in one day. Ophthalmology was contacted by the emergency department who recommended that she begin antiviral eyedrops, and she was started on clindamycin for her cellulitis. During her stay dermatology was also consulted for the evaluation of a black eschar/lesion on her forehead under the concern that this may be a malignant lesion. It was dermatology's opinion that this was more likely an eschar after a traumatic event, the recommendation was to put Vaseline or Aquaphor on it on a daily basis. Otherwise, the remainder of her hospital admission was fairly benign, her cellulitis receded, laboratory values remained within acceptable limits, the criminal justice social worker had been working with her to obtain a bed in a fpc. Upon evaluation today, apparently she did have a restless night, therefore she was groggy during my evaluation but not particularly unpleasant. She refuses answer any of my questions, but denied being in any pain, and she had no specific complaints regarding her eye. PHYSICAL EXAMINATION ON DISCHARGE: VITAL SIGNS: Temperature 97.6, pulse 64, respiratory rate 18, blood pressure 135 /62, pulse oximetry 95% on room air GENERAL: Reclined in a hospital bed. She was easily arousable. She appears to be in no distress at this time. HEENT: Normocephalic, atraumatic, she does appear to have some slight cloudiness over the right eye, and eyelid appears to be slightly inverted this morning. Otherwise, cellulitis appears to have completely resolved. CARDIOVASCULAR EXAMINATION: Regular rate and rhythm, with no rubs, gallops, or murmur. RESPIRATORY EXAMINATION: Clear to auscultation bilaterally with no wheezes, rales, or rhonchi. ABDOMINAL EXAMINATION: Soft, nontender, nondistended. Bowel sounds present. EXTREMITIES: No clubbing or edema noted. 2+ pulses in the radial bilaterally. DISPOSITION: To [facility] DISCHARGE INSTRUCTIONS: Follow-up with her primary care provider at the [facility] within the next 7-10 days. Diet consisting carbohydrates. Activity as tolerated. If symptoms return, or if you experience worsening of your symptoms, please call your doctor or return to the emergency department. DISCHARGE MEDICATIONS: Continue taking from home: Fosamax 70 mg by mouth weekly Vitamin C 2000 mg by mouth daily Aspirin 81 mg by mouth daily vitamin D 1000 units by mouth daily glipizide 5 mg by mouth twice a day Metformin 500 mg by mouth daily Simvastatin 20 mg by mouth daily at bedtime New Medications: Amlodipine 10 mg by mouth daily Lisinopril 50 mg by mouth daily Trifluridine ophthalmic solution 1 drop OD every 4 hours (stop taking 07/10/2016 ) Stop Taking (of her previous home medications): Amlodipine 5 mg by mouth daily Cefdinir 300 mg by mouth twice a day Erythromycin ophthalmic solution 1 dose OD 3 times a day Lisinopril/hydrochlorothiazide 20-12.5 and tablet by mouth daily Scopolamine 1.5 mg topically every 72 hours ITEMS THAT NEED OUTPATIENT FOLLOWUP: Recommend outpatient follow-up with ophthalmology for reevaluation of herpes zoster of the right eye. Trifluridine ophthalmic solution is not to be taken for greater than 21 days, this was started on 06/20/2016, she should stop taking it by 07/10/2016 My preceptor for this patient encounter was physically present in the building during the encounter and was fully available. As needed, all aspects of the patient interview, examination, medical decision making process, and medical care plan development were reviewed and approved by the preceptor. Preceptor is aware and concurs with the plan as stated in the body of this note and will attest to such by his/her cosignature. Laboratory Data Labs 24H Laboratory Tests 2 06/30/16 16:49: Bedside Glucose (Misc Panel) 95 06/30/16 20:24: Bedside Glucose (Misc Panel) 155H 07/01/16 08:08: Bedside Glucose (Misc Panel) 121H 07/01/16 11:25: Bedside Glucose (Misc Panel) 150H FSBS Laboratory Tests Test 06/30/16 16:49 06/30/16 20:24 07/01/16 08:08 07/01/16 11:25 Range/Units Bedside Glucose (Misc Panel) 95 155 121 150 83-110 MG/DL Microbiology Microbiology 06/24/16 Urine Culture - Final, Complete Escherichia Coli Discharge Medications Scheduled Alendronate Sodium (Fosamax) 70 Mg Tab 70 MG PO 1XWK (Reported) Amlodipine Besylate (Amlodipine Besylate) 10 Mg Tab 10 MG PO DAILY Ascorbic Acid (Vitamin C) 1,000 Mg Tab 2,000 MG PO DAILY (Reported) Aspirin (Aspir-Low) 81 Mg Tab 81 MG PO DAILY (Reported) Cholecalciferol (Vitamin D) 1,000 Unit Tab 1,000 UNIT PO DAILY (Reported) Glipizide (Glipizide) 5 Mg Tab 5 MG PO BID (Reported) Lisinopril (Lisinopril) 5 Mg Tab 15 MG PO DAILY Metformin Hydrochloride (Metformin HCl ER) 500 Mg Tab 500 MG PO DAILY (Reported ) Simvastatin (Simvastatin) 20 Mg Tab 20 MG PO QHS (Reported) Trifluridine (Trifluridine) 150 Drop/7.5 Ml Soln 1 DROP OD Q4H Allergies Coded Allergies: Meclizine (Verified Allergy, Unknown, 11/16/14) Procaine (Verified Allergy, Unknown, 11/16/14) Azithromycin (Verified Adverse Reaction, Intermediate, PALPITATION,WEAK, SHAKING, 07/04/12) Codeine (Unverified Adverse Reaction, Intermediate, NAUSEA,HALLUCINATIONS , VOMITING, 06/20/16) Morphine (Unverified Adverse Reaction, Intermediate, SHAKES, 06/20/16) Penicillins (Verified Adverse Reaction, Mild, NAUSEA,VOMITING, 07/04/12) Penicillins Cross Reactors (Verified Adverse Reaction, Mild, NAUSEA, VOMITING, 07/04/12) XIAO JEFFRIES DO Jul 01, 2016 12:10
== END 2016-07-01 11:50 | DRG 603 ==
LOC: EDBD 02:44 → M ED 04:17 → M ED INP 06:18 → M MSPAV 08:27
PROVIDERS: ADMIT Internal Medicine; ATTEND Internal Medicine
DX: L03.213 Periorbital cellulitis (principal); B02.39 Other herpes zoster eye disease; L03.211 Cellulitis of face; I10 Essential (primary) hypertension; E11.9 Type 2 diabetes mellitus without complications; E78.5 Hyperlipidemia, unspecified; M81.0 Age-related osteoporosis without current pathological fracture; F03.90 Unspecified dementia, unspecified severity, without behavioral disturbance, psychotic disturbance, mood disturbance, and anxiety; H81.10 Benign paroxysmal vertigo, unspecified ear; Z79.82 Long term (current) use of aspirin; Z79.84 Long term (current) use of oral hypoglycemic drugs; Z79.899 Other long term (current) drug therapy; Z88.0 Allergy status to penicillin; Z88.5 Allergy status to narcotic agent; Z88.1 Allergy status to other antibiotic agents; Z88.8 Allergy status to other drugs, medicaments and biological substances

== ENCOUNTER → 2016-07-09 | Outpatient (REF) | payer MEDICARE ==
[~2016-07-09] MED LIST changes: +AMLO10TA2 PO; +CEFD1CAP8 PO; +ERYT5OPO OD; +LISI-542 PO; +[UNRECOGNIZED DRUG - CODE] OD
[2016-07-09 09:38] LABS: CALCIUM LEVEL 9.1 MG/DL (8.8-10.2); GLOMERULAR FILTRATION RATE 55.8 (>32); POTASSIUM SERUM 3.9 MEQ/L (3.5-5.1)
== END ==
LOC: SKLAB6 07:00
DX: E11.9 Type 2 diabetes mellitus without complications (principal)

== ENCOUNTER → 2016-08-29 | Outpatient (REF) | payer MEDICARE ==
[2016-08-29 10:12] LABS: MEAN CORPUSCULAR HEMOGLOBIN 32.2 pg (27.0-33.0); MEAN CORPUSCULAR VOLUME 97.8 fl (80.0-96.0); RED CELL DISTRIBUTION WIDTH 12.5 % (11.5-14.5); WHITE BLOOD COUNT 7.6 K/mm3 (4.0-10.0)
[2016-08-29 10:41] LABS: ALBUMIN 3.1 GM/DL (3.2-5.2); ALBUMIN/GLOBULIN RATIO 1.03 (1.00-1.93); BILIRUBIN,TOTAL 0.3 MG/DL (0.2-1.0); CALCIUM LEVEL 8.5 MG/DL (8.8-10.2); CREATININE FOR GFR 1.17 MG/DL (0.55-1.02); GLOMERULAR FILTRATION RATE 46.6 (>32); POTASSIUM SERUM 3.9 MEQ/L (3.5-5.1); TOTAL PROTEIN 6.1 GM/DL (6.4-8.2)
== END ==
LOC: SKLAB6 08:00
DX: I10 Essential (primary) hypertension (principal)

== ENCOUNTER → 2016-09-03 | Outpatient (REF) | payer MEDICARE | LOC: SKLAB6 09-02 07:00 | DX: E11.9 Type 2 diabetes mellitus without complications (principal) ==

== ENCOUNTER → 2016-10-08 | Outpatient (REF) | payer MEDICARE ==
[~2016-10-08] MED LIST changes: -METF1000 PO; +METF10004 PO
[2016-10-08 11:07] LABS: CREATININE FOR GFR 1.06 MG/DL (0.55-1.02); GLOMERULAR FILTRATION RATE 52.2 (>32)
[2016-10-08 11:12] LABS: VITAMIN B12 LEVEL 232 PG/ML (247-911)
== END ==
LOC: SKLAB6 07:00
DX: F03.91 Unspecified dementia, unspecified severity, with behavioral disturbance (principal)

== ENCOUNTER → 2017-01-07 | Outpatient (REF) | payer MEDICARE | LOC: SKLAB6 07:00 | DX: Z53.8 Procedure and treatment not carried out for other reasons (principal) ==

== ENCOUNTER → 2017-01-21 | Outpatient (REF) | payer MEDICARE ==
[2017-01-21 09:02] LABS: MEAN CORPUSCULAR HEMOGLOBIN 30.8 pg (27.0-33.0); MEAN CORPUSCULAR VOLUME 93.2 fl (80.0-96.0); PLATELET COUNT, AUTOMATED 352 10^3/uL (150-450); RED CELL DISTRIBUTION WIDTH 12.9 % (11.5-14.5); WHITE BLOOD COUNT 6.5 10^3/uL (4.0-10.0)
[2017-01-21 09:42] LABS: CALCIUM LEVEL 9.5 MG/DL (8.8-10.2); CREATININE FOR GFR 0.98 MG/DL (0.55-1.02); GLOMERULAR FILTRATION RATE 57.2 (>32); POTASSIUM SERUM 3.9 MEQ/L (3.5-5.1)
== END ==
LOC: SKLAB6 07:00
DX: E11.9 Type 2 diabetes mellitus without complications (principal); I10 Essential (primary) hypertension

== ENCOUNTER → 2017-02-22 | Outpatient (REF) | payer MEDICARE ==
[2017-02-22 20:01] LABS: BASO % 0.4 % (0.0-1.0); EOS % 0.4 % (0.0-3.0); IMMATURE GRANULOCYTE % 0.2 % (0-0); LYMPH # 1.4 10^3/uL (1.5-4.5); LYMPH % 17.3 % (24.0-44.0); MEAN CORPUSCULAR HEMOGLOBIN 30.6 pg (27.0-33.0); MEAN CORPUSCULAR HGB CONC 33.1 g/dl (32.0-36.5); MEAN CORPUSCULAR VOLUME 92.4 fl (80.0-96.0); MONO # 0.5 10^3/uL (0.0-0.8); NEUTROPHILS # 6.3 10^3/uL (1.8-7.7); NEUTROPHILS % 75.7 % (36.0-66.0); PLATELET COUNT, AUTOMATED 248 10^3/uL (150-450); RED CELL DISTRIBUTION WIDTH 12.8 % (11.5-14.5); WHITE BLOOD COUNT 8.3 10^3/uL (4.0-10.0)
[2017-02-22 20:25] LABS: CALCIUM LEVEL 9.3 MG/DL (8.8-10.2); CREATININE FOR GFR 1.27 MG/DL (0.55-1.02); GLOMERULAR FILTRATION RATE 42.4 (>32); POTASSIUM SERUM 4.4 MEQ/L (3.5-5.1)
== END ==
LOC: SKLAB6 19:16
DX: R41.82 Altered mental status, unspecified (principal); I12.9 Hypertensive chronic kidney disease with stage 1 through stage 4 chronic kidney disease, or unspecified chronic kidney disease; E11.9 Type 2 diabetes mellitus without complications; N18.3 Chronic kidney disease, stage 3 (moderate); E55.9 Vitamin D deficiency, unspecified

== ENCOUNTER → 2017-03-24 | Outpatient (CLI) | payer OTHER, MEDICARE | LOC: M PSYSKH 08:00 | DX: F22 Delusional disorders (principal); R63.4 Abnormal weight loss; Z91.19 Patient's noncompliance with other medical treatment and regimen ==

== ENCOUNTER → 2017-04-08 | Outpatient (REF) | payer MEDICARE ==
[2017-04-08 10:10] LABS: ANION GAP 6 MEQ/L (8-16); BLOOD UREA NITROGEN 20 MG/DL (7-18); CALCIUM LEVEL 9.4 MG/DL (8.8-10.2); CARBON DIOXIDE LEVEL 29 MEQ/L (21-32); CHLORIDE LEVEL 108 MEQ/L (98-107); CREATININE FOR GFR 0.89 MG/DL (0.55-1.02); GLOMERULAR FILTRATION RATE > 60.0 (>32); GLUCOSE, FASTING 146 MG/DL (83-110); POTASSIUM SERUM 3.9 MEQ/L (3.5-5.1); SODIUM LEVEL 143 MEQ/L (136-145)
== END ==
LOC: SKLAB6 07:00
DX: E11.9 Type 2 diabetes mellitus without complications (principal)
CPT/HCPCS: 36415

== ENCOUNTER → 2017-07-02 | Outpatient (REF) | payer MEDICARE | LOC: SKLAB6 08:00 | DX: R09.81 Nasal congestion (principal) | CPT/HCPCS: 87633 ==